=== PATIENT | male | born 1965 ===

== ENCOUNTER 2018-02-16 08:48 | Outpatient (CLI) | payer OTHER | END 2018-02-16 08:53 | disposition home or self-care (01) | LOC: SONOGRAMA 08:48 | DX: K70.0 Alcoholic fatty liver (principal) ==

== ENCOUNTER 2018-03-24 09:26 | Emergency (ER) | payer OTHER ==
[~2018-03-24] VITALS: Ht 175.3 cm; Wt 75.7 kg
[2018-03-24] MEDS ORDERED: DEPAKOTE ER500 MG PO (09:45)
[2018-03-24] MEDS ORDERED: AVAPRO300 MG PO (09:46)
[2018-03-24] MEDS ORDERED: FORTAMET1000 MG PO (09:46)
[2018-03-24] MEDS ORDERED: NALTREXONE HCL50 MG PO (09:46)
[2018-03-24] MEDS ORDERED: FOLIC ACID1 MG PO (09:47)
[2018-03-24] MEDS ORDERED: CATAPRES0.1 MG PO (09:47)
[2018-03-24] MEDS ORDERED: GLIMEPIRIDE2 MG PO (09:48)
== END 2018-03-24 12:25 | disposition home or self-care (01) ==
LOC: ER 09:26
DX: R55 Syncope and collapse (principal)

== ENCOUNTER 2021-03-15 09:40 | Outpatient (CLI) | payer OTHER ==
[~2021-03-15 09:40] MED LIST: AVAPRO300 MG PO; CATAPRES0.1 MG PO; DEPAKOTE ER500 MG PO; FOLIC ACID1 MG PO; FORTAMET1000 MG PO; GLIMEPIRIDE2 MG PO; NALTREXONE HCL50 MG PO
== END 2021-03-15 09:54 | disposition home or self-care (01) ==
LOC: RAD 09:40
PROVIDERS: ATTEND Orthopaedic Surgery
DX: M25.561 Pain in right knee (principal); M25.562 Pain in left knee; M25.551 Pain in right hip; M25.552 Pain in left hip

== ENCOUNTER 2021-04-03 13:37 | Outpatient (CLI) | payer OTHER | END 2021-04-03 13:47 | disposition home or self-care (01) | LOC: RAD 13:37 | PROVIDERS: ATTEND Orthopaedic Surgery | DX: M79.651 Pain in right thigh (principal); M79.652 Pain in left thigh ==